=== PATIENT | male | born 1940 | race Caucasian/White ===

== ENCOUNTER 2018-12-16 13:49 | Inpatient (IN) | payer MEDICARE, BC ==
[~2018-12-16] VITALS: Ht 175.3 cm; Wt 107.0 kg
[2018-12-16] MEDS ORDERED: IV NORMAL SALINE 1,000ML 1,000 ML IV SCH (14:00)
--- NOTE | 2018-12-16 14:00 | PHYS DOC ---
Adult General Chief Complaint Chief Complaint: SYNCOPE HPI HPI Patient is a 77-year-old male who presents via EMS after reportedly having multiple syncopal episodes. Patient was out at [place] at a football game, was sitting on the tailgate of a truck, when he had a series of 2 syncopal events. EMS was called and patient had refused transport at that time. Just as EMS was departing the scene, patient had another syncopal event and at this point, patient agreed to be seen. He denies any chest pain or shortness breath. He denies any headache. He denies any nausea or vomiting. Patient noted be very diaphoretic upon arrival but states that he was hot from being in the sun and wearing a sweatshirt.[] Review of Systems Review of Systems Constitutional: Denies fever or chills [] Respiratory: Denies cough or shortness of breath [] Cardiovascular: No additional information not addressed in HPI [] GI: Denies abdominal pain, nausea, vomiting or diarrhea [] Integument: Denies rash or skin lesions [] Neurologic: Denies headache, focal weakness or sensory changes [] All other systems were reviewed and found to be within normal limits, except as documented in this note. Physical Exam Physical Exam Constitutional: Well developed, well nourished, no acute distress, non-toxic appearance. [] HENT: Normocephalic, atraumatic, bilateral external ears normal, oropharynx moist, no oral exudates, nose normal. [] Eyes: PERRLA, EOMI, conjunctiva normal, no discharge. [] Neck: Normal range of motion, no tenderness, supple, no stridor. [] Cardiovascular: Bradycardic rate with regular rhythm[] Lungs & Thorax: Bilateral breath sounds clear to auscultation [] Abdomen: Bowel sounds normal, soft, no tenderness. [] Skin: Cool, diaphoretic, no erythema, no rash. [] Extremities: No tenderness, no cyanosis, no clubbing, ROM intact. [] Neurologic: Alert and oriented X 3, no focal deficits noted. [] EKG EKG EKG demonstrates sinus bradycardia with rate of 51.[] Radiology/Procedures Radiology/Procedures [] Impressions: REASON: SYNCOPE PROCEDURE: PORTABLE CHEST 1V EXAM: Chest, single view. HISTORY: Syncope. COMPARISON: None. FINDINGS: A frontal view of the chest is obtained. There is no infiltrate, pleural effusion or pneumothorax. The heart is normal in size. IMPRESSION: No acute pulmonary finding. Electronically signed by: Rosa Maria Wei MD (12/16/2018 2:27 PM) [facility] Course & Med Decision Making Course & Med Decision Making Pertinent Labs and Imaging studies reviewed. (See chart for details) [] Dragon Disclaimer Dragon Disclaimer This electronic medical record was generated, in whole or in part, using a voice recognition dictation system. Departure Departure: Impression: Primary Impression: Recurrent syncope Additional Impression: Anemia Disposition: ADMITTED INPATIENT Admitting Physician: Jessa Cook Condition: IMPROVED Problem Qualifiers Additional Impression: Anemia Anemia type: unspecified type Qualified Codes: D64.9 - Anemia, unspecified KIRSTIN FRANKLIN Jr. DO Dec 16, 2018 14:00
--- NOTE | 2018-12-16 14:30 | RAD ---
EXAM: Chest, single view. HISTORY: Syncope. COMPARISON: None. FINDINGS: A frontal view of the chest is obtained. There is no infiltrate, pleural effusion or pneumothorax. The heart is normal in size. IMPRESSION: No acute pulmonary finding. Electronically signed by: Rosa Maria Wei MD (12/16/2018 2:27 PM) [facility]
[2018-12-16 14:53] LABS: BASO # 0.1 x10^3/uL (0.0-0.2); BASO % 1 % (0-3); EOS # 0.2 x10^3/uL (0.0-0.7); EOS % 3 % (0-3); HEMATOCRIT 28.3 % (39.0-53.0); HEMOGLOBIN 8.2 g/dL (13.0-17.5); LYMPH # 0.4 x10^3/uL (1.0-4.8); LYMPH % 7 % (24-48); MEAN CORPUSCULAR HEMOGLOBIN 18 pg (25-35); MEAN CORPUSCULAR HGB CONC 29 g/dL (31-37); MEAN CORPUSCULAR VOLUME 63 fL (79-100); MONO # 0.3 x10^3/uL (0.0-1.1); MONO % 5 % (0-9); NEUT % 84 % (31-73); PLATELET COUNT 195 x10^3/uL (140-400); RED BLOOD COUNT 4.49 x10^6/uL (4.30-5.70); RED CELL DISTRIBUTION WIDTH 19.4 % (11.5-14.5)
[2018-12-16 15:16] LABS: ALBUMIN 3.5 g/dL (3.4-5.0); ALBUMIN/GLOBULIN RATIO 1.3 (1.0-1.7); CALCIUM 9.1 mg/dL (8.5-10.1); CREATININE 1.9 mg/dL (0.7-1.3); GFR 34.6; MAGNESIUM 1.9 mg/dL (1.8-2.4); POTASSIUM 3.8 mmol/L (3.5-5.1); TOTAL BILIRUBIN 0.6 mg/dL (0.2-1.0); TOTAL PROTEIN 6.3 g/dL (6.4-8.2)
[2018-12-16 17:00] VITALS: BP 120/54
[2018-12-16] MEDS ORDERED: OMEG1CAP2 PO (17:02)
[2018-12-16] MEDS ORDERED: LOSA50TA86 PO (17:10)
[2018-12-16] MEDS ORDERED: METO25TA4 PO (17:10)
[2018-12-16] MEDS ORDERED: ATOR40TA59 PO (17:10)
[2018-12-16] MEDS ORDERED: HYDR-2145 PO (17:10)
[2018-12-16] MEDS ORDERED: METF500T16 PO (17:10)
[2018-12-16] MEDS ORDERED: RIVA20TA2 PO (17:10)
[2018-12-16] MEDS ORDERED: DILT180C29 PO (17:11)
[2018-12-16] MEDS ORDERED: TORS20TA2 PO (17:12)
[2018-12-16] MEDS ORDERED: LEVO100T5 PO (17:12)
--- NOTE | 2018-12-16 17:39 | EKG ---
[address] [address] Test Date: 2018-12-16 Test Time: 13:56:34 Pat Name: KARLA JACK Department: Room: 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
[2018-12-16] MEDS ORDERED: DEXTROSE 50% 25 GM / 50ML DISP.SYRIN. IV PRN (18:45)
[2018-12-16 19:00] VITALS: BP 120/55
[2018-12-16] MEDS ORDERED: chlordiazePOXIDE HCL 25 MG CAPSULE PO PRN ×2 (19:00)
[2018-12-16] MEDS: IV DEXTROSE 5 %-0.2 % NACL 1,000 ML IV SCH (20:17)
[2018-12-16] MEDS: ATORVASTATIN CALCIUM 20 MG TABLET PO SCH (20:18)
--- NOTE | 2018-12-16 22:12 | HP ---
ADMIT DATE: 12/16/2018 HISTORY OF PRESENT ILLNESS: The patient is a 78-year-old male patient who was brought to the Emergency Room with recurrent syncopal episode. The patient was out at [place] to [employer] game and was sitting at the tail gate of a truck when he had a series of 2 syncopal events. EMS was called. The patient has refused transport at that time. Just as the EMS was departing the scene, the patient had another syncopal event and at this point, the patient agreed to be seen. He denies any chest pain or shortness of breath. Denies any headache, denies any nausea or vomiting. The patient noted to be very diaphoretic upon arrival, but states that he was hot from being in the sun and wearing a sweatshirt and he was evaluated in the Emergency Room. Apparently, he has had orthostatics ____ has no evidence of postural hypertension. His EKG showed that he demonstrated sinus bradycardia with a heart rate of 51, has had lab work, which showed that he has severe microcytic hypochromic anemia. His kidney function showed also he was slightly dehydrated. His sodium was high at 146 and serum creatinine was 1.9. Unfortunately, we have no other labs to compare with, although he has lab work done about a week ago at [facility] and was told that he is anemic and had to be on iron tablets. PAST MEDICAL HISTORY: Significant for type 2 diabetes mellitus, hypertension, hyperlipidemia, hypothyroidism, atrial fibrillation, prostate cancer and osteoarthritis. PAST SURGICAL HISTORY: Significant for atrial ablation, left knee total arthroplasty, Achilles tendon repair, bilateral cataract extraction, tonsillectomy, colonoscopy. ALLERGIES: He has no known drug allergies. MEDICATIONS: He is currently on following medications: He is on rivaroxaban 20 mg at bedtime, atorvastatin calcium 40 mg at bedtime, omega-3 fatty acid for Lovaza 2 capsules once a day, metoprolol tartrate 25 mg once a day, diltiazem 180 mg once a day, losartan potassium 50 mg once a day, torsemide 20 mg once a day, hydrochlorothiazide 25 mg once a day, metformin 500 mg twice a day and levothyroxine sodium 100 mcg once a day. FAMILY HISTORY: He has no sisters or brothers. His father at the age of 89. Mother at the age of 83. SOCIAL HISTORY: He is . He has 1 daughter and 2 sons. He does not smoke, but drink alcohol on a daily basis. 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 REVIEW OF SYSTEMS: The patient denied any blurring of vision. He had bilateral cataract extraction, but denied any glaucoma or macular degeneration. Denied any earache, tinnitus or sensorineural deafness. Denied any nosebleeds, stuffy nose or postnasal drip. Denied any sore throat, sore tongue, toothache, hoarseness of voice or difficulty swallowing. Denied any nausea, vomiting, diarrhea or constipation. Denied any hematemesis, melena or hematochezia. Denied any dysuria, frequency or hematuria. He does have nocturia about 4 times. Denied any chest pain, shortness of breath and denied any cough, phlegm or hemoptysis. Denied any orthopnea or paroxysmal nocturnal dyspnea. He had ____ syncopal episode and was diaphoretic at the scene. PHYSICAL EXAMINATION: GENERAL: On examining him, at the time he arrived to the ICU, he looked well and was clearly in no apparent respiratory distress, pale, but no jaundice, cyanosis or thyromegaly. No jugular venous distention. No limb edema. VITAL SIGNS: His heart rate was 51, blood pressure was 120/54, temperature was 98, respiratory rate was 16, and oxygen saturation was 97%. HEAD, EYES, EARS, NOSE AND THROAT: Showed normocephalic, atraumatic. NECK: Supple. HEART: Showed normal first and second heart sounds. No gallop or murmur. CHEST: Clear to auscultation. No crepitation or rhonchi. ABDOMEN: Distended, soft, nontender. No guarding or rigidity. No organomegaly. All hernial orifice intact. Bowel sounds normal. NEUROLOGIC: He was awake, alert, responding appropriately. All cranial nerves intact. EXTREMITIES: He moves extremities without difficulty. He ambulates without assistance or assistive devices. LABORATORY DATA: His lab work on arrival showed a serum sodium of 146, potassium 3.8, chloride 107, bicarbonate 26, anion gap of 13, BUN 17, creatinine 1.9, estimated GFR was 34 mL per minute, his glucose was 135, calcium was 9.1, magnesium was 1.9. Total bilirubin, AST, ALT were normal. Alkaline phosphatase was high at 242. His troponin was less than 0.017. Total protein was 6.3, albumin 3.5. His white cell count was 6000, hemoglobin 8.2, hematocrit 28, MCV 63 and platelet count of 195,000. His chest x-ray showed that there is no infiltrate, pleural effusion, or pneumothorax. Heart size is normal. ASSESSMENT AND PLAN: In summary, this is a 78-year-old male patient who was brought to the Emergency Room after he has 3 syncopal episodes. He denied any chest pain or shortness of breath. Did have diaphoresis there. He apparently has a history of atrial fibrillation and underwent ablation for that. He is on metoprolol as well as diltiazem. The monitor showed that his heart rate ____ sometimes to below 40. I wonder whether he goes into intermittent high grade heart block. We will do 2 more sets of cardiac enzymes. We will check his carotid Doppler ultrasound. We will consult the cardiology team and we will check also his serum iron, TIBC, and serum ferritin. 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 SHAUN ORNELAS MD DR: AMY/tatianna JOB#: [id number] / [id number]
[2018-12-16 22:37] LABS: PLT ESTIMATE ADEQUATE (ADEQUATE)
[2018-12-16 22:38] LABS: ANISOCYTOSIS MOD; HYPOCHROMIA MOD; OVALOCYTES OCC; POLYCHROMASIA SLIGHT
[2018-12-16 22:48] VITALS: BP 119/53
[2018-12-17] MEDS: IV DEXTROSE 5 %-0.2 % NACL 1,000 ML IV SCH ×2 (05:14→21:25)
[2018-12-17] MEDS: LEVOTHYROXINE 100 MCG TABLET PO SCH (05:14)
[2018-12-17 05:18] VITALS: BP 125/60
[2018-12-17] MEDS: INSULIN LISPRO 300 UNITS/3 ML VIAL. SQ SCH ×3 (07:56→17:00)
[2018-12-17 08:31] VITALS: BP 128/55
[2018-12-17] MEDS: OMEGA-3 FATTY ACIDS/FISH OIL 1,000 MG CAPSULE. PO SCH (08:31)
[2018-12-17] MEDS: LOSARTAN 50 MG TABLET. PO SCH (08:36)
[2018-12-17 09:44] LABS: HEMATOCRIT 25.9 % (39.0-53.0); HEMOGLOBIN 7.8 g/dL (13.0-17.5); RED BLOOD COUNT 4.13 x10^6/uL (4.30-5.70); RED CELL DISTRIBUTION WIDTH 19.5 % (11.5-14.5); WHITE BLOOD COUNT 5.6 x10^3/uL (4.0-11.0)
[2018-12-17 09:45] LABS: CALCIUM 9.1 mg/dL (8.5-10.1); CREATININE 1.5 mg/dL (0.7-1.3); GFR 45.5; POTASSIUM 3.6 mmol/L (3.5-5.1)
[2018-12-17 11:45] VITALS: BP 145/56
--- NOTE | 2018-12-17 12:18 | PDOC2 ---
CONSULT Date of Admission DATE: 12/17/18 TIME: 12:18 Reason for Consult: Syncope Referring Physician: Dr. Cook Chief Complaint Syncope Source: Chart review, Patient Problem List Problems Medical Problems: (1) Anemia Status: Acute (2) Recurrent syncope Status: Acute History of Present Illness 78-year-old male was apparently tailgating at a football game when he had 2 episodes of mikey syncope. He denied any preceding chest pain or palpitations. He also denied any orthopnea/PND. He apparently had on other episode of syncope when he was at a bar several years ago. He has history of paroxysmal atrial fibrillation and underwent ablation therapy at [facility] one year ago. Past Medical History Atrial fibrillation s/p ablation therapy one year ago Hypertension Hyperlipidemia Hypothyroidism Osteoarthritis Prostate cancer Past Surgical History Bilateral cataract extraction Tonsillectomy Achilles tendon repair Total knee arthroplasty Family History Negative for premature coronary artery disease Social History Patient denied any smoking or drug abuse but admitted to drinking alcohol on a regular basis Current Medications Current Medications Sodium Chloride 1,000 ml @ 1,000 mls/hr Q1H IV Last administered on 12/16/18at 15:00; Start 12/16/18 at 14:00; Stop 12/16/18 at 14:59; Status DC Levothyroxine Sodium (Synthroid) 100 mcg DAILY06 PO Last administered on 12/17/18at 05:14; Start 12/17/18 at 06:00 Losartan Potassium (Cozaar) 50 mg DAILY PO Last administered on 12/17/18at 08:36; Start 12/17/18 at 09:00 Atorvastatin Calcium (Lipitor) 40 mg QHS PO Last administered on 12/16/18at 20:18; Start 12/16/18 at 21:00 Fish Oil (Fish Oil) 2,000 mg DAILY PO Last administered on 12/17/18at 08:31; Start 12/17/18 at 09:00 Dextrose/Sodium Chloride 1,000 ml @ 75 mls/hr [id number] IV Last administered on 12/17/18at 05:14; Start 12/16/18 at 18:45 Insulin Human Lispro (HumaLOG) 0-5 UNITS TIDWMEALS SQ ; Start 12/17/18 at 08:00 Dextrose (Dextrose 50%-Water Syringe) 12.5 gm PRN Q15MIN PRN IV SEE COMMENTS; Start 12/16/18 at 18:45 Chlordiazepoxide (Librium) 50 mg PRN Q1HR PRN PO For CIWA 8-14; Start 12/16/18 at 19:00 Chlordiazepoxide (Librium) 100 mg PRN Q1HR PRN PO For CIWA 15 or greater; Start 12/16/18 at 19:00 Active Scripts Active Reported Torsemide 20 Mg Tablet 1 Tab PO DAILY Levothyroxine Sodium 100 Mcg Tablet 1 Tab PO DAILY Diltiazem 24HR Cd (Diltiazem Hcl) 180 Mg Cap.er.24h 1 Cap PO DAILY 30 Days Losartan Potassium (Losartan Potassium) 50 Mg Tablet 50 Mg PO DAILY Metoprolol Tartrate 25 Mg Tablet 1 Tab PO DAILY Xarelto (Rivaroxaban) 20 Mg Tablet 1 Tab PO QHS 30 Days with food Hydrochlorothiazide Tablet (Hydrochlorothiazide) 25 Mg Tablet 25 Mg PO DAILY Atorvastatin Calcium 40 Mg Tablet 40 Mg PO QHS Metformin Hcl 500 Mg Tablet 1 Tab PO BID Lovaza (Hope-3 Acid Ethyl Esters) 1 Gm Capsule 2 Cap PO DAILY Allergies: Coded Allergies: No Known Drug Allergies (Unverified , 12/16/18) PSYCHOLOGICAL ROS: No: Hallucinations Eyes: No: Loss of vision HEENT: No: Epistaxis Respiratory: No: Hemoptysis, Shortness of breath Cardiovascular: No: Chest Pain Gastrointestinal: No: Vomiting, Diarrhea Genitourinary: No: [place] Neurological: YES: Other (syncope); No: Seizures Skin: No: Rash General: Alert, Oriented X3 HEENT: Atraumatic, PERRLA Lungs: Clear to auscultation Heart: Regular rate Abdomen: Soft, No tenderness Extremities: No edema Psych/Mental Status: Mood NL VITALS Vital Signs Date Time Temp Pulse Resp B/P (MAP) Pulse Ox O2 Delivery O2 Flow Rate FiO2 12/17/18 08:36 55 128/55 12/17/18 08:31 97.7 16 95 Room Air Labs Laboratory Tests Test 12/16/18 14:30 12/16/18 20:47 12/16/18 22:20 12/17/18 07:15 White Blood Count 6.0 x10^3/uL (4.0-11.0) 5.6 x10^3/uL (4.0-11.0) Red Blood Count 4.49 x10^6/uL (4.30-5.70) 4.13 x10^6/uL (4.30-5.70) Hemoglobin 8.2 g/dL (13.0-17.5) 7.8 g/dL (13.0-17.5) Hematocrit 28.3 % (39.0-53.0) 25.9 % (39.0-53.0) Mean Corpuscular Volume 63 fL (79-100) 63 fL (79-100) Mean Corpuscular Hemoglobin 18 pg (25-35) 19 pg (25-35) Mean Corpuscular Hemoglobin Concent 29 g/dL (31-37) 30 g/dL (31-37) Red Cell Distribution Width 19.4 % (11.5-14.5) 19.5 % (11.5-14.5) Platelet Count 195 x10^3/uL (140-400) 171 x10^3/uL (140-400) Neutrophils (%) (Auto) 84 % (31-73) Lymphocytes (%) (Auto) 7 % (24-48) Monocytes (%) (Auto) 5 % (0-9) Eosinophils (%) (Auto) 3 % (0-3) Basophils (%) (Auto) 1 % (0-3) Neutrophils # (Auto) 5.0 x10^3uL (1.8-7.7) Lymphocytes # (Auto) 0.4 x10^3/uL (1.0-4.8) Monocytes # (Auto) 0.3 x10^3/uL (0.0-1.1) Eosinophils # (Auto) 0.2 x10^3/uL (0.0-0.7) Basophils # (Auto) 0.1 x10^3/uL (0.0-0.2) Platelet Estimate Adequate (ADEQUATE) Polychromasia Slight Hypochromasia Mod Anisocytosis Mod Ovalocytes Occ Crenated Cell Present Sodium Level 146 mmol/L (136-145) 141 mmol/L (136-145) Potassium Level 3.8 mmol/L (3.5-5.1) 3.6 mmol/L (3.5-5.1) Chloride Level 107 mmol/L (98-107) 105 mmol/L (98-107) Carbon Dioxide Level 26 mmol/L (21-32) 26 mmol/L (21-32) Anion Gap 13 (6-14) 10 (6-14) Blood Urea Nitrogen 17 mg/dL (8-26) 16 mg/dL (8-26) Creatinine 1.9 mg/dL (0.7-1.3) 1.5 mg/dL (0.7-1.3) Estimated GFR (Cockcroft-Gault) 34.6 45.5 BUN/Creatinine Ratio 9 (6-20) Glucose Level 135 mg/dL (70-99) 136 mg/dL (70-99) Calcium Level 9.1 mg/dL (8.5-10.1) 9.1 mg/dL (8.5-10.1) Magnesium Level 1.9 mg/dL (1.8-2.4) Total Bilirubin 0.6 mg/dL (0.2-1.0) Aspartate Amino Transf (AST/SGOT) 20 U/L (15-37) Alanine Aminotransferase (ALT/SGPT) 30 U/L (16-63) Alkaline Phosphatase 242 U/L (46-116) Troponin I Quantitative < 0.017 ng/mL (0-0.055) < 0.017 ng/mL (0-0.055) < 0.017 ng/mL (0-0.055) Total Protein 6.3 g/dL (6.4-8.2) Albumin 3.5 g/dL (3.4-5.0) Albumin/Globulin Ratio 1.3 (1.0-1.7) Glucose (Fingerstick) 150 mg/dL (70-99) Iron Level 16 ug/dL (65-175) Total Iron Binding Capacity 360 ug/dL (250-450) Iron Saturation 4 % (15-34) Ferritin 14 ng/mL (26-388) Triglycerides Level 113 mg/dL (0-150) Cholesterol Level 114 mg/dL (0-200) LDL Cholesterol, Calculated 55 mg/dL (0-100) VLDL Cholesterol, Calculated 22 mg/dL (0-40) Non-HDL Cholesterol Calculated 77 mg/dL (0-129) HDL Cholesterol 37 mg/dL (40-60) Cholesterol/HDL Ratio 3.0 Test 12/17/18 07:55 12/17/18 12:04 Glucose (Fingerstick) 119 mg/dL (70-99) 130 mg/dL (70-99) Assessment/Plan 1. Syncope of uncertain etiology. Telemetry showed few episodes of sinus bradycardia without any significant pauses. Agree with holding metoprolol. With his history of atrial fibrillation and ablation therapy, consider event monitor recording or loop recorder implantation to rule out sick sinus syndrome. We will defer this to primary cardiology at [facility] 2. Paroxysmal atrial fibrillation s/p ablation therapy, presently in sinus rhythm. On Xarelto for stroke prophylaxis. 3. Hypertension: Controlled 4. Hyperlipidemia: Continue statin therapy 5. Diabetes mellitus type 2: Treat per IM Thank you for your consultation LIZABETH ARMSTRONG MD Dec 17, 2018 12:18
[2018-12-17] MEDS ORDERED: IRON SUCROSE COMPLEX 200 MG in IV NORMAL SALINE 100ML 100 ML IV ONE (13:15)
[2018-12-17] MEDS ORDERED: FERR325T14 PO (13:33)
[2018-12-17] MEDS ORDERED: ASCO500T3 PO (13:35)
--- NOTE | 2018-12-17 14:03 | RAD ---
EXAM: CAROTID DOPPLER SONOGRAM. HISTORY: Recurrent syncope. TECHNIQUE: Max scale and color Doppler sonographic evaluation of the neck with spectral waveform analysis was performed and static images are submitted for review. FINDINGS: RIGHT: The peak systolic velocity within the common carotid artery is 75 cm/sec. The peak systolic velocity within the internal carotid artery is 97 cm/sec and the end diastolic velocity within the internal carotid artery is 17 cm/sec. The ICA/CCA ratio is 1.09. Grayscale images demonstrate no grayscale stenosis. LEFT: The peak systolic velocity within the common carotid artery is 70 cm/sec. The peak systolic velocity within the internal carotid artery is 68 cm/sec and the end diastolic velocity within the internal carotid artery is 22 cm/sec. The ICA/CCA ratio is 0.97. Grayscale images demonstrate no grayscale stenosis. There is antegrade flow within both vertebral arteries. IMPRESSION: 1. No evidence of hemodynamically significant stenosis. PQRS Compliance Statement - Stenosis calculations for CT, MR and conventional angiography are based upon measurement of the distal ICA diameter in accordance with the NASCET methodology. Stenosis calculations for carotid ultrasound studies are derived from validated velocity criteria which are known to correlate with the NASCET methodology. Electronically signed by: Estiven Jansen MD (12/17/2018 2:00 PM) [facility]
[2018-12-17 15:18] VITALS: BP 132/64
[2018-12-17 20:24] VITALS: BP 153/65
[2018-12-17] MEDS: ATORVASTATIN CALCIUM 20 MG TABLET PO SCH (20:30)
[2018-12-18] MEDS: LEVOTHYROXINE 100 MCG TABLET PO SCH (05:41)
[2018-12-18 05:45] VITALS: BP 147/69
--- NOTE | 2018-12-18 05:57 | PN ---
DATE: 12/17/2018 SUBJECTIVE: The patient is sitting at the edge of the bed comfortably in no apparent distress. On questioning him, he denied any complaint. Has had no further syncopal episode; however, we held his metoprolol and diltiazem. His heart rate is mostly in the mid 50s, although yesterday I saw heart rate down to about 39. His lab work showed that he has severe iron-deficiency anemia with microcytic hypochromic anemia. His iron studies showed that his serum iron is only 16, TIBC was high at 360, and iron saturation was 4. His serum ferritin was only 14. PHYSICAL EXAMINATION: GENERAL: When I examined him this afternoon, he looked well and was clearly in no apparent distress. He was pale. No jaundice, cyanosis or thyromegaly. No jugular venous distention. No limb edema. VITAL SIGNS: His heart rate was 59, blood pressure was 145/56, temperature was 97.7, respiratory rate was 16, and oxygen saturation was 95% on room air. HEAD, EYES, EARS, NOSE AND THROAT: Showed normocephalic, atraumatic. NECK: Supple. HEART: Showed normal first and second heart sounds. No gallop, rub or murmur. CHEST: Clear to auscultation. No crepitation or rhonchi. ABDOMEN: Distended, soft, nontender. No guarding or rigidity. No organomegaly. All hernial orifice intact. Bowel sounds normal. NEUROLOGIC: He was awake and alert, responding appropriately. All cranial nerves are intact. He moves extremities without any difficulty. He ambulates without assistance or assistive devices. LABORATORY DATA: His lab work this morning showed a serum sodium 141, potassium 3.6, chloride 105, bicarbonate 26, anion gap of 10, BUN 16, creatinine 1.5, estimated GFR was 45 mL per minute, his glucose 136, calcium was 9.1. Serum iron was 16, TIBC 360, iron saturation was 4%, and serum ferritin was only 14. His white cell count was 5600, hemoglobin 7.8, hematocrit 26, MCV 63 and platelet count of 171,000. ASSESSMENT: 1. Recurrent syncopal episode, likely due to sick sinus syndrome versus high-grade heart block. He has had ablation done and he is currently on metoprolol and Cardizem. 2. Type 2 diabetes that seems to be reasonably controlled. 3. Hypertension, well controlled. 4. Hyperlipidemia. 5. Hypothyroidism. 6. Atrial fibrillation. 7. Prostate cancer. 8. Osteoarthritis. 9. He has severe iron-deficiency anemia. PLAN: As per Dr. Alaniz, we will hold the metoprolol, continue with diltiazem. We will hold his rivaroxaban as well as hydrochlorothiazide. We will give him Venofer 200 mg IV once today and again tomorrow at 500 mg. We will restart his diltiazem, and hopefully tomorrow, we will arrange for him to be seen by his digital strategy director, as he definitely has probably some form of sick sinus syndrome and he has severe iron-deficiency anemia, and probably bleeding from his GI. SHAUN ORNELAS MD DR: AMY/tatianna JOB#: [id number] / [id number]
[2018-12-18 06:44] LABS: HEMOGLOBIN 7.7 g/dL (13.0-17.5); RED BLOOD COUNT 4.06 x10^6/uL (4.30-5.70); RED CELL DISTRIBUTION WIDTH 20.1 % (11.5-14.5); WHITE BLOOD COUNT 5.1 x10^3/uL (4.0-11.0)
[2018-12-18 07:11] LABS: ALBUMIN 3.1 g/dL (3.4-5.0); CALCIUM 9.1 mg/dL (8.5-10.1); CREATININE 1.3 mg/dL (0.7-1.3); GFR 53.7; POTASSIUM 3.6 mmol/L (3.5-5.1); TOTAL BILIRUBIN 0.4 mg/dL (0.2-1.0); TOTAL PROTEIN 6.1 g/dL (6.4-8.2)
[2018-12-18] MEDS: LOSARTAN 50 MG TABLET. PO SCH (07:47)
[2018-12-18] MEDS: OMEGA-3 FATTY ACIDS/FISH OIL 1,000 MG CAPSULE. PO SCH (07:47)
[2018-12-18] MEDS: INSULIN LISPRO 300 UNITS/3 ML VIAL. SQ SCH ×2 (07:47→12:00)
[2018-12-18] MEDS: IV DEXTROSE 5 %-0.2 % NACL 1,000 ML IV SCH (07:57)
[2018-12-18] MEDS ORDERED: IRON SUCROSE COMPLEX 500 MG in IV NORMAL SALINE 250ML 250 ML IV ONE (09:00)
--- NOTE | 2018-12-18 09:41 | PDOC ---
BALJINDER DESAI AGUSTINA 12/18/18 0941: CARDIO Progress Notes Date & Time Date of Service DATE: 12/18/18 TIME: 09:38 Time of Evaluation 09:38 Subjective Notes No chest pain, palpitations, dizziness, or further syncope Vitals Vitals Vital Signs Date Time Temp Pulse Resp B/P (MAP) Pulse Ox O2 Delivery O2 Flow Rate FiO2 12/18/18 08:00 Room Air 12/18/18 07:47 45 12/18/18 05:45 14 147/69 (95) 96 12/17/18 20:24 98.3 Weight Weight [ ] Input and Output I.O. Intake and Output 12/18/18 06:59 Intake Total 1100 ml Balance 1100 ml Intake Oral 1100 ml # Voids 3 Laboratory Labs Laboratory Tests Test 12/16/18 14:30 12/16/18 20:47 12/16/18 22:20 12/17/18 07:15 White Blood Count 6.0 x10^3/uL (4.0-11.0) 5.6 x10^3/uL (4.0-11.0) Red Blood Count 4.49 x10^6/uL (4.30-5.70) 4.13 x10^6/uL (4.30-5.70) Hemoglobin 8.2 g/dL (13.0-17.5) 7.8 g/dL (13.0-17.5) Hematocrit 28.3 % (39.0-53.0) 25.9 % (39.0-53.0) Mean Corpuscular Volume 63 fL (79-100) 63 fL (79-100) Mean Corpuscular Hemoglobin 18 pg (25-35) 19 pg (25-35) Mean Corpuscular Hemoglobin Concent 29 g/dL (31-37) 30 g/dL (31-37) Red Cell Distribution Width 19.4 % (11.5-14.5) 19.5 % (11.5-14.5) Platelet Count 195 x10^3/uL (140-400) 171 x10^3/uL (140-400) Neutrophils (%) (Auto) 84 % (31-73) Lymphocytes (%) (Auto) 7 % (24-48) Monocytes (%) (Auto) 5 % (0-9) Eosinophils (%) (Auto) 3 % (0-3) Basophils (%) (Auto) 1 % (0-3) Neutrophils # (Auto) 5.0 x10^3uL (1.8-7.7) Lymphocytes # (Auto) 0.4 x10^3/uL (1.0-4.8) Monocytes # (Auto) 0.3 x10^3/uL (0.0-1.1) Eosinophils # (Auto) 0.2 x10^3/uL (0.0-0.7) Basophils # (Auto) 0.1 x10^3/uL (0.0-0.2) Platelet Estimate Adequate (ADEQUATE) Polychromasia Slight Hypochromasia Mod Anisocytosis Mod Ovalocytes Occ Crenated Cell Present Sodium Level 146 mmol/L (136-145) 141 mmol/L (136-145) Potassium Level 3.8 mmol/L (3.5-5.1) 3.6 mmol/L (3.5-5.1) Chloride Level 107 mmol/L (98-107) 105 mmol/L (98-107) Carbon Dioxide Level 26 mmol/L (21-32) 26 mmol/L (21-32) Anion Gap 13 (6-14) 10 (6-14) Blood Urea Nitrogen 17 mg/dL (8-26) 16 mg/dL (8-26) Creatinine 1.9 mg/dL (0.7-1.3) 1.5 mg/dL (0.7-1.3) Estimated GFR (Cockcroft-Gault) 34.6 45.5 BUN/Creatinine Ratio 9 (6-20) Glucose Level 135 mg/dL (70-99) 136 mg/dL (70-99) Calcium Level 9.1 mg/dL (8.5-10.1) 9.1 mg/dL (8.5-10.1) Magnesium Level 1.9 mg/dL (1.8-2.4) Total Bilirubin 0.6 mg/dL (0.2-1.0) Aspartate Amino Transf (AST/SGOT) 20 U/L (15-37) Alanine Aminotransferase (ALT/SGPT) 30 U/L (16-63) Alkaline Phosphatase 242 U/L (46-116) Troponin I Quantitative < 0.017 ng/mL (0-0.055) < 0.017 ng/mL (0-0.055) < 0.017 ng/mL (0-0.055) Total Protein 6.3 g/dL (6.4-8.2) Albumin 3.5 g/dL (3.4-5.0) Albumin/Globulin Ratio 1.3 (1.0-1.7) Glucose (Fingerstick) 150 mg/dL (70-99) Iron Level 16 ug/dL (65-175) Total Iron Binding Capacity 360 ug/dL (250-450) Iron Saturation 4 % (15-34) Ferritin 14 ng/mL (26-388) Triglycerides Level 113 mg/dL (0-150) Cholesterol Level 114 mg/dL (0-200) LDL Cholesterol, Calculated 55 mg/dL (0-100) VLDL Cholesterol, Calculated 22 mg/dL (0-40) Non-HDL Cholesterol Calculated 77 mg/dL (0-129) HDL Cholesterol 37 mg/dL (40-60) Cholesterol/HDL Ratio 3.0 Test 12/17/18 07:55 12/17/18 12:04 12/17/18 16:35 12/17/18 20:34 Glucose (Fingerstick) 119 mg/dL (70-99) 130 mg/dL (70-99) 88 mg/dL (70-99) 144 mg/dL (70-99) Test 12/18/18 05:50 12/18/18 05:56 12/18/18 07:37 White Blood Count 5.1 x10^3/uL (4.0-11.0) Red Blood Count 4.06 x10^6/uL (4.30-5.70) Hemoglobin 7.7 g/dL (13.0-17.5) Hematocrit 26.0 % (39.0-53.0) Mean Corpuscular Volume 64 fL (79-100) Mean Corpuscular Hemoglobin 19 pg (25-35) Mean Corpuscular Hemoglobin Concent 30 g/dL (31-37) Red Cell Distribution Width 20.1 % (11.5-14.5) Platelet Count 152 x10^3/uL (140-400) Sodium Level 144 mmol/L (136-145) Potassium Level 3.6 mmol/L (3.5-5.1) Chloride Level 109 mmol/L (98-107) Carbon Dioxide Level 26 mmol/L (21-32) Anion Gap 9 (6-14) Blood Urea Nitrogen 13 mg/dL (8-26) Creatinine 1.3 mg/dL (0.7-1.3) Estimated GFR (Cockcroft-Gault) 53.7 BUN/Creatinine Ratio 10 (6-20) Glucose Level 126 mg/dL (70-99) Calcium Level 9.1 mg/dL (8.5-10.1) Total Bilirubin 0.4 mg/dL (0.2-1.0) Aspartate Amino Transf (AST/SGOT) 16 U/L (15-37) Alanine Aminotransferase (ALT/SGPT) 25 U/L (16-63) Alkaline Phosphatase 216 U/L (46-116) Total Protein 6.1 g/dL (6.4-8.2) Albumin 3.1 g/dL (3.4-5.0) Albumin/Globulin Ratio 1.0 (1.0-1.7) Glucose (Fingerstick) 122 mg/dL (70-99) Physical Exams HEENT: Neck Supple W Full Motion Chest: Symmetric Lungs: Clear to Auscultation Heart: S1S2, RRR Abdomen: Soft N/T Extremities: No Edema Neurology: alert, oriented, follow commands Assessment Assessment 1. Syncope; etiology unclear. Telemetry showed few episodes of sinus bradycardia without any significant pauses. 2. PAFIB; s/p ablation therapy. Maintaining SR. 3. Hypertension: Controlled 4. Hyperlipidemia: Continue statin therapy 5. Diabetes, II Recommendations Hold metoprolol Xarelto for stroke prophylaxis. Outpatient event monitor versus loop recorder; will defer to primary grated cheese maker at [facility] Supportive care May discharge from a CV standpoint and f/u with primary grated cheese maker. GAGE JACOME MD 12/18/18 2159: CARDIO Progress Notes Plan Plan Pt. seen and examined. Agree with above CHUTE BUILDER note. No clear terry arrhythmias noted. I discussed with patient and family not to drive or operate any heavy machinery until further eval with loop or event recorder. He probably has afib with conversion pauses. Need to document this before offering pacer. He has f/u with primary grated cheese maker tomorrow. Thanks BALJINDER DESAI APRN Dec 18, 2018 09:41 GAGE JACOME MD Dec 18, 2018 22:39
[2018-12-18 11:29] VITALS: BP 147/69
== END 2018-12-18 12:25 | disposition home or self-care (01) | DRG 640 ==
LOC: EDBD 13:49 → ER 13:49 → ICU 16:33
PROVIDERS: ADMIT Internal Medicine; ATTEND Internal Medicine
DX: E86.0 Dehydration (principal); N17.0 Acute kidney failure with tubular necrosis; I48.0 Paroxysmal atrial fibrillation; D50.9 Iron deficiency anemia, unspecified; E11.9 Type 2 diabetes mellitus without complications; E03.9 Hypothyroidism, unspecified; I10 Essential (primary) hypertension; E78.5 Hyperlipidemia, unspecified; Z85.46 Personal history of malignant neoplasm of prostate; M19.90 Unspecified osteoarthritis, unspecified site; Z98.41 Cataract extraction status, right eye; Z98.42 Cataract extraction status, left eye; Z96.659 Presence of unspecified artificial knee joint
CPT/HCPCS: 36415; 71045; 80048; 80053; 80061; 82728; 82947; 83540; 83550; 83735; 84484; 85025; 85027; 93005; 93880; J1756; J1815; J7050; 99285-25; J7030